=== PATIENT | male | born 1950 | race Caucasian/White ===

== ENCOUNTER 2021-10-22 08:39 | Outpatient (CLI) | payer OTHER, SELFPAY ==
[2021-10-22 20:40] LABS: Hemoglobin A1C 5.5 % (<5.7)
[2021-10-22 21:16] LABS: Alanine Aminotransferase 17 U/L (6-50); Albumin Level 4.4 g/dL (3.5-5.1); Alkaline Phosphatase 62 U/L (38-126); Anion Gap 9 mmol/L (8-16); Aspartate Amino Transferase 30 U/L (17-59); Bilirubin,Total 0.8 mg/dL (0.2-1.3); Blood Urea Nitrogen 18 mg/dL (9-20); Carbon Dioxide 26 mmol/L (22-30); Chloride 103 mmol/L (98-107); Cholesterol 164 mg/dL (0-200); Estimated Glomerular Filt Rate > 60; Glucose 99 mg/dL (65-110); HDL Direct 54 mg/dL; Potassium 4.2 mmol/L (3.4-5.0); Sodium 138 mmol/L (137-145); Triglycerides 69 mg/dL (<150)
[2021-10-22 21:27] LABS: LDL Cholesterol Direct 82 mg/dL
[2021-10-22 21:47] LABS: Prostate Specific Antigen 3.5 ng/mL (< OR = 4.0)
== END 2021-10-22 08:40 | disposition home or self-care (01) ==
LOC: ANHGOSHLAB 08:41
PROVIDERS: PCP Family Medicine; Visit Provider Family Medicine
DX: R73.01 Impaired fasting glucose (principal); Z13.228 Encounter for screening for other metabolic disorders; E78.5 Hyperlipidemia, unspecified; Z12.5 Encounter for screening for malignant neoplasm of prostate
CPT/HCPCS: 36415; 80053; 80061; 83036; 84153; G0103

== ENCOUNTER 2022-10-26 09:18 | Outpatient (CLI) | payer OTHER, SELFPAY ==
[2022-10-26 14:40] LABS: Alanine Aminotransferase 23 U/L (6-50); Albumin Level 4.4 g/dL (3.5-5.1); Alkaline Phosphatase 57 U/L (38-126); Anion Gap 7 mmol/L (8-16); Aspartate Amino Transferase 36 U/L (17-59); Bilirubin,Total 0.5 mg/dL (0.2-1.3); Blood Urea Nitrogen 19 mg/dL (9-20); Calcium 8.9 mg/dL (8.4-10.2); Carbon Dioxide 28 mmol/L (22-30); Chloride 105 mmol/L (98-107); Cholesterol 159 mg/dL (0-200); Estimated Glomerular Filt Rate > 60; Glucose 92 mg/dL (65-110); HDL Direct 51 mg/dL; Potassium 4.4 mmol/L (3.4-5.0); Sodium 140 mmol/L (137-145); Triglycerides 52 mg/dL (<150)
[2022-10-26 14:52] LABS: LDL Cholesterol Direct 89 mg/dL
== END 2022-10-26 09:19 | disposition home or self-care (01) ==
PROVIDERS: PCP Family Medicine; Visit Provider Family Medicine
DX: E78.5 Hyperlipidemia, unspecified (principal); Z12.5 Encounter for screening for malignant neoplasm of prostate; Z13.228 Encounter for screening for other metabolic disorders
CPT/HCPCS: 36415; 80053; 80061; 84153; G0103

== ENCOUNTER 2023-02-10 03:25 | Day surgery (SDC) | payer OTHER, SELFPAY ==
[2023-01-25 15:49] VITALS: BMI 31.3
--- NOTE | 2023-02-08 10:44 | SUR.PREOP ---
Patient called regarding upcoming procedure. Reviewed preop instructions, appointment times, and procedure prep.
--- NOTE | 2023-02-09 15:39 | PM.HPGS ---
History of Present Illness History of Present Illness Consent: Risks, benefits, and alternatives have been discussed and questions answered. Patient agrees to proceed with procedure. Chief complaint: hx of colon polyps Narrative: Jesus Jones is a 73 year old male Referred for colon cancer screening. He has had polyps removed on a couple of occasions, 2016 in 2019. Review of Systems Review of Systems: All systems reviewed & are unremarkable except as noted in HPI and below PMFSH Past Medical History Medical History H/O Mohs micrographic surgery for skin cancer Social History Social History Smoking status: Never smoker Second hand tobacco smoke exposure: No Smoking end date: 03/07/77 Alcohol intake: current Drinks per week: 3 Substance use: never Substance use type: does not use Lack of Transportation: No Lack of Food: Never True Current Housing: I Have Housing Concerned About Future Housing: No Difficulty Paying Gas/Electric Bills: No Difficulty Paying for Meds: No Currently Unemployed: No Education: Associate Degree Difficulty w/ Childcare or Family Care: No Living arrangements: with family Spiritual care concerns: No Meds Home Medications and Allergies Home Medications Medication Instructions Recorded Confirmed Type simvastatin 20 mg tablet 20 mg PO DAILY #90 tabs 09/08/21 01/25/23 Rx ketoconazole 2 % topical cream 1 applic topical DAILY #30 grams 10/22/21 01/25/23 Rx buspirone 5 mg tablet 5 mg PO BID #60 tabs 11/22/22 01/25/23 Rx Allergies Allergy/AdvReac Type Severity Reaction Status Date / Time codeine AdvReac Mild Nausea and Verified 02/10/23 08:02 Vomiting Exam Const: General: alert Orientation/consciousness: patient oriented x3 Resp: Auscultation: clear to auscultation bilaterally Cardio: Rhythm: regular rhythm GI: GI Palp: Yes Soft to palpation and No Tenderness to palpation present (GI) Neuro: General: patient oriented x3 Assessment and Plan Assessment and plan (1) Colon cancer screening: Code(s): Z12.11 - Encounter for screening for malignant neoplasm of colon Status: Acute Assessment and Plan: Colonoscopy with possible biopsy or polypectomy or cautery or injection of substances.
[2023-02-10 08:04] VITALS: BP 146/91; PULSE 58; RESP 18; TEMP 36.4; O2SAT 97
[2023-02-10] MEDS: LACTATED RINGERS 1,000 ML 150 ML IV CONT (08:12)
--- NOTE | 2023-02-10 08:32 | WPDANESEPPF ---
Anes - Initial Pre Proc Eval Procedure: Operation Date: 02/10/23 09:00 Proposed Procedures p Colonoscopy - Papito Davies MD Date/Time: 02/10/23 08:32 Surgeon: Papito Davies MD Pre Op Diagnosis: hx of colon polyps Patient Data Age: 73 Gender: M Height: 1.68 m Weight: 90 kg Last Vital Signs Temp 97.6 F 02/10/23 08:04 Pulse 58 L 02/10/23 08:04 Resp 18 02/10/23 08:04 BP 146/91 H 02/10/23 08:04 Pulse Ox 97 02/10/23 08:04 O2 Del Method Room Air 02/10/23 08:04 Allergies Allergy/AdvReac Type Severity Reaction Status Date / Time codeine AdvReac Mild Nausea and Verified 02/10/23 08:02 Vomiting Home Medications Medication Instructions Recorded Confirmed Type simvastatin 20 mg tablet 20 mg PO DAILY #90 tabs 09/08/21 01/25/23 Rx ketoconazole 2 % topical cream 1 applic topical DAILY #30 grams 10/22/21 01/25/23 Rx buspirone 5 mg tablet 5 mg PO BID #60 tabs 11/22/22 01/25/23 Rx Patient hx anesthesia problems: none Family hx anesthesia problems: none Results Review: All pre-operative results and documents have been reviewed as part of the pre-operative evaluation. [facility] Past Medical History Medical History H/O Mohs micrographic surgery for skin cancer Social History Social History Smoking status: Never smoker Second hand tobacco smoke exposure: No Smoking end date: 03/07/77 Alcohol intake: current Drinks per week: 3 Substance use: never Substance use type: does not use Lack of Transportation: No Lack of Food: Never True Current Housing: I Have Housing Concerned About Future Housing: No Difficulty Paying Gas/Electric Bills: No Difficulty Paying for Meds: No Currently Unemployed: No Education: Associate Degree Difficulty w/ Childcare or Family Care: No Living arrangements: with family Spiritual care concerns: No Anes - Eval Final PreProcedure Day of Procedure 02/10/23 08:32 Patient weight: obese Heart: regular rate and rhythm Lungs: clear to auscultation Airway: Mallampati scale class II Neurological: alert and oriented Last oral intake: >/= 8 hours ASA classification: II Emergent: no Anesthetic plan: proceed Anesthesia type and monitoring: general GIVS and standard monitoring Results Review: All pre-operative results and documents have been reviewed as part of the pre-operative evaluation. Informed Consent: The patient's anesthetic plan and its attendant risks and benefits were discussed with the patient/family/POA. Questions were solicited and answers provided to the satisfaction of the patient/family/POA.
[2023-02-10 09:21] VITALS: BP 99/64; PULSE 53; RESP 17; O2SAT 94
[2023-02-10 09:31] VITALS: BP 99/64; PULSE 47; RESP 15; O2SAT 97
[2023-02-10 09:41] VITALS: BP 127/69; PULSE 62; RESP 15; O2SAT 97
== END 2023-02-10 09:59 | disposition home or self-care (01) ==
PROVIDERS: PCP Family Medicine; Visit Provider Internal Medicine Gastroenterology
PROC: 0DJD8ZZ Inspection of Lower Intestinal Tract, Via Natural or Artificial Opening Endoscopic (ICD-10-PCS; CPT 45378; principal; 2023-02-10 09:00)
DX: Z12.11 Encounter for screening for malignant neoplasm of colon (principal); K64.8 Other hemorrhoids; K57.30 Diverticulosis of large intestine without perforation or abscess without bleeding; Z86.010 Personal history of colon polyps; E66.9 Obesity, unspecified; Z68.32 Body mass index [BMI] 32.0-32.9, adult
CPT/HCPCS: G0105; J7120

== ENCOUNTER 2023-03-19 17:57 | Emergency (ER) | payer OTHER, SELFPAY ==
[2023-03-19] VITALS (8 sets, daily range): BP systolic 136–153; BP diastolic 71–86; PULSE 52–62; RESP 15–20; O2SAT 96–98
--- NOTE | ~2023-03-19 | XR_ITS ---
Portable chest x-ray Comparison: 12/14/2018 Clinical History: Chest pain Findings: Lungs are clear, without focal consolidation or pleural effusion. Cardiomediastinal silho uette is stable. Bones and soft tissues are unremarkable. Impression: Normal chest. Reviewed, dictated and finalized at [facility]. RIALS TECHNICIAN Impression: Normal chest.
--- NOTE | 2023-03-19 18:00 | ECG_ITS ---
Measurements Intervals [place] Rate: 51 P: 12 [place]: 166 QRS: 57 QRSD: 92 T: 43 QT: 434 QTc: 401 Interpretive Statements SINUS BRADYCARDIA BORDERLINE ECG NO PREVIOUS ECG AVAILABLE FOR COMPARISON Electronically Signed On 03-19-2023 20:49:48 TREATING ENGINEER by Ronni Solomon D.O.
--- NOTE | 2023-03-19 18:09 | ED.RECABL ---
HPI - Recheck/Abnormal Lab/Rx General Chief Complaint: Recheck/Abnormal Lab/Rx Stated Complaint: HTN/ irreg HR/ CP Time Seen by Provider: 03/19/23 18:09 History of Present Illness HPI narrative: Patient is a 73-year-old male with a history of hyperlipidemia presenting with high blood pressure. Patient states that he has always had blood pressure on the lower side. He checked his blood pressure at [facility] a few weeks ago and it was in the 140s to 150 systolic. He got a new blood pressure machine at home and has been checking it is concerned that it has been running consistently in the 140s to 150 systolic. He called his PCP who got him in for an appointment in 2 weeks. He was started on losartan which he has taken for the last 3 days. States that he has had random twinges of left-sided chest pain for the last 2 weeks. States that this morning he had some coffee and he then had a sensation of his heart skipping beats. No associated chest pain with this, no shortness of breath, no lightheadedness, no leg swelling. Patient became anxious so came in for evaluation. Currently, he denies complaints. Related Data Allergies Allergy/AdvReac Type Severity Reaction Status Date / Time codeine AdvReac Mild Nausea and Verified 03/19/23 18:07 Vomiting Review of Systems Review of Systems: All systems reviewed & are unremarkable except as noted in HPI and below PMFSH Past Medical History Medical History H/O Mohs micrographic surgery for skin cancer Social History Social History Smoking status: Never smoker Second hand tobacco smoke exposure: No Smoking end date: 03/07/77 Alcohol intake: current Drinks per week: 3 Substance use: never Substance use type: does not use Lack of Transportation: No Lack of Food: Never True Current Housing: I Have Housing Concerned About Future Housing: No Difficulty Paying Gas/Electric Bills: No Difficulty Paying for Meds: No Currently Unemployed: No Education: Associate Degree Difficulty w/ Childcare or Family Care: No Living arrangements: with family Spiritual care concerns: No Exam Narrative: GENERAL: Well-appearing, In no acute distress, pleasant cooperative HEAD: Normocephalic, atraumatic. EYES: PERRLA and EOMI. ENT: Mucous membranes moist. NECK: Supple. CHEST: Clear to auscultation. No respiratory distress. HEART: Regular rate and rhythm. No murmur heard. ABDOMEN: Soft, nontender, nondistended EXTREMITIES: No edema. SKIN: Warm, dry, no rash. NEURO: Alert and oriented x3. PSYCH: Normal mood and affect. Course Vital Signs Vital signs: Vital Signs Pulse Rate 62 03/19/23 18:19 Respiratory Rate 16 03/19/23 18:19 Blood Pressure 153/86 H 03/19/23 18:19 Pulse Oximetry 98 03/19/23 18:19 Pulse Rate 52 L 03/19/23 19:46 Respiratory Rate 15 03/19/23 19:46 Blood Pressure 141/71 H 03/19/23 19:46 Pulse Oximetry 96 03/19/23 18:45 MDM - Recheck/Abnormal Lab/Rx MDM Narrative Medical decision making narrative: 73-year-old male presenting with concerns for hypertension and palpitations. Patient is a bit hypertensive here, blood pressures 140s to 150s over 80s. Exam remarkable for the above. EKG per my interpretation shows sinus bradycardia, no acute ischemic changes. Blood work is unremarkable. Normal renal function. Troponin is undetectable. chest x-ray without acute findings. I feel the patient is safe for outpatient management. He has an appointment with his PCP in about 2 weeks. Advised that he continue taking his daily losartan and keeping a blood pressure diary until he follows up. Appropriate return precautions given. Patient voices understanding and is agreeable with plan. Discharged in stable condition. Differential Diagnosis Differential diagnosis: Likely other ( Asymptomatic hy
[2023-03-19] MEDS: ASPIRIN 81 MG CHEWABLE TABLET 324 MG PO (18:17)
[2023-03-19 18:25] LABS: Basophils Percent Auto 0.4 % (0.2-1.2); Eosinophils Percent Auto 0.4 % (0-4.4); Hematocrit 45.2 % (42.0-52.0); Hemoglobin 14.7 g/dL (14.0-18.0); Immature Granulocyte Absolute 0.02 K/mm3 (0.00-0.031); Immature Granulocyte Percent A 0.3 % (0-0.5); Lymphocytes Absolute Auto 1.55 K/mm3 (0.9-3.2); Lymphocytes Percent Auto 19.8 % (18.3-44.2); Mean Corpuscular HGB Conc 32.5 g/dl (32-36); Mean Corpuscular Hemoglobin 30.8 pg (26-34); Mean Corpuscular Volume 94.6 fl (80-100); Mean Platelet Volume 10.3 fl (7.4-10.4); Monocytes Absolute Auto 0.6 K/mm3 (0.1-0.6); Monocytes Percent Auto 7.4 % (2.6-8.5); Neutrophils Absolute Auto 5.6 K/mm3 (1.3-6.7); Neutrophils Percent Auto 71.7 % (45.5-73.1); Platelet Count Result 253 k/mm3 (150-375); Red Blood Count 4.78 M/mm3 (4.6-6.20); Red Cell Distribution Width 12.7 % (11.5-14.5); White Blood Count 7.8 K/mm3 (4.5-10.0)
[2023-03-19 18:35] LABS: INR 1.1; Prothrombin Time 14.2 Seconds (11.1-14.7)
[2023-03-19 18:36] LABS: Alanine Aminotransferase 21 U/L (6-50); Albumin Level 4.2 g/dL (3.5-5.1); Alkaline Phosphatase 66 U/L (38-126); Anion Gap 6 mmol/L (8-16); Aspartate Amino Transferase 31 U/L (17-59); Bilirubin,Total 0.8 mg/dL (0.2-1.3); Blood Urea Nitrogen 15 mg/dL (9-20); Calcium 8.9 mg/dL (8.4-10.2); Carbon Dioxide 28 mmol/L (22-30); Chloride 104 mmol/L (98-107); Estimated CRCL calculation 65 ml/min; Estimated Glomerular Filt Rate > 60; Glucose 97 mg/dL (65-110); Lipase 95 U/L (23-300); Partial Thromboplastin Time 32.5 SECONDS (22.3-36.8); Sodium 138 mmol/L (137-145)
[2023-03-19 18:48] LABS: Troponin I < 0.012 ng/mL (0.000-0.034)
== END 2023-03-19 20:44 | disposition home or self-care (01) ==
PROVIDERS: Emergency Medicine; Emergency Provider Emergency Medicine; PCP Family Medicine
DX: I10 Essential (primary) hypertension (principal); R00.2 Palpitations; R07.9 Chest pain, unspecified; E78.5 Hyperlipidemia, unspecified; Z85.828 Personal history of other malignant neoplasm of skin; Z87.891 Personal history of nicotine dependence; R00.1 Bradycardia, unspecified
CPT/HCPCS: 36415; 71045; 80053; 83690; 84484; 85025; 85610; 85730; 93005; 99284; A9270

== ENCOUNTER 2024-11-27 06:53 | Outpatient (CLI) | payer OTHER, SELFPAY ==
[2024-11-27 07:34] LABS: Hematocrit 43.9 % (42.0-52.0); Hemoglobin 14.4 g/dL (14.0-18.0); Immature Granulocyte Percent A 0.6 % (0-0.5); Lymphocytes Absolute Auto 1.38 K/mm3 (0.9-3.2); Mean Corpuscular HGB Conc 32.8 g/dl (32-36); Mean Corpuscular Hemoglobin 31.2 pg (26-34); Mean Corpuscular Volume 95.0 fl (80-100); Nucleated Red Blood Cells Absolute Auto 0.000 K/mm3 (0.0-0.012); Nucleated Red Blood Cells Perc 0.0 % (0.0-0.2); Platelet Count Result 228 k/mm3 (150-375); Red Blood Count 4.62 M/mm3 (4.6-6.20); White Blood Count 6.5 K/mm3 (4.5-10.0)
[2024-11-27 08:03] LABS: Alanine Aminotransferase 19 U/L (6-50); Albumin Level 3.9 g/dL (3.5-5.1); Alkaline Phosphatase 64 U/L (38-126); Anion Gap 5 mmol/L (4-12); Aspartate Amino Transferase 30 U/L (17-59); Bilirubin,Total 0.8 mg/dL (0.2-1.3); Blood Urea Nitrogen 19 mg/dL (9-20); Calcium 8.5 mg/dL (8.4-10.2); Carbon Dioxide 27 mmol/L (22-30); Chloride 104 mmol/L (98-107); Estimated Glomerular Filt Rate > 60; Glucose 99 mg/dL (65-110); Potassium 4.4 mmol/L (3.4-5.0); Sodium 136 mmol/L (137-145); Total Protein 6.6 g/dL (6.3-8.2)
[2024-11-27 08:59] LABS: Vitamin B12 636.0 pg/mL (239-931)
== END 2024-11-27 06:54 | disposition home or self-care (01) ==
PROVIDERS: PCP Family Medicine; Visit Provider Family Medicine
DX: E78.49 Other hyperlipidemia (principal); F41.9 Anxiety disorder, unspecified; R73.09 Other abnormal glucose; L30.1 Dyshidrosis [pompholyx]; E66.9 Obesity, unspecified; Z68.32 Body mass index [BMI] 32.0-32.9, adult; Z79.899 Other long term (current) drug therapy
CPT/HCPCS: 36415; 80053; 82306; 82607; 85025